=== PATIENT | female | born 1985 | race Caucasian/White ===

== ENCOUNTER 2021-01-20 05:34 | Inpatient (IN) ==
--- NOTE | 2021-01-11 13:28 | Anesthesiology Consultation ---
Date of Service January 11, 2021 Assessment & Plan (1) Encounter for pre-operative examination: Chart Review Chart Review: entry level buyer initiated Per nursing assessment 01/11/2021, patient denies any recent travel. No known Covid infection in the past 90 days. No known Covid positive contacts or Covid related symptoms. Pt is aware of need of getting preop Covid testing= will await results. History Surgery Operation Date: 01/20/21 07:30 Proposed Procedures p Section in - Abram Chiang MD Height/Weight Height: 5 ft 3 in Weight: 142.882 kg Allergies Allergy/AdvReac Type Severity Reaction Status Date / Time No Known Allergies Allergy Verified 01/11/21 12:18 Medications Home Medications Medication Instructions Recorded Confirmed Last Taken insulin glargine [Lantus Solostar 42 unit SUBCUT HS 01/11/21 01/11/21 Unknown U-100 Insulin] [id number] 1 tab PO QAM 01/11/21 01/11/21 Unknown [] Past Medical History Medical History Gestational diabetes On insulin History of depression History of pyloric stenosis as a child Past Family History Family History Other No family history of adverse response to anesthesia Past Surgical History Surgical History History of History of open reduction and internal fixation (ORIF) procedure Left arm History of repair of pyloric stenosis History of wisdom tooth extraction Social History Smoking Status: Never smoker Do You Dip or Chew Tobacco: No Hx Alcohol Use: No Hx Substance Use: No substance use type: does not use
--- NOTE | 2021-01-11 17:05 | History and Physical Report ---
This is a preoperative H and P for surgery scheduled on 01/20/2021. CHIEF COMPLAINT: 1. at term. 2. Previous section, wishes to have repeat . HISTORY OF PRESENT ILLNESS: This is a 35-year-old G3, P1, due date 01/27/2021, making her 37 weeks a nd 5 weeks today. The patient has elevated BMI and a prior section. is complicat ed by gestational diabetes on insulin. The patient is receiving 42 units every evening. She is sche duled for repeat section on 01/20/2021. course complicated by: 1. BMI of 56.3. 2. Gestational diabetes, on insulin. 3. History of previous section, wishes to have repeat . PAST MEDICAL HISTORY: 1. History of gestational diabetes in previous pregnancies. 2. History of herpes zoster. PAST SURGICAL HISTORY: 1. History of previous section in 2010. 2. Dental surgery. SOCIAL HISTORY: The patient denies tobacco, drug or alcohol use. FAMILY HISTORY: Noncontributory. PHYSICAL EXAMINATION: GENERAL: Well-developed, well-nourished white female. Morbidly obese, BMI 66.3. HEART: S1, S2 heard. Regular rhythm and rate. LUNGS: Clear to auscultation bilaterally. ABDOMEN: Nontender, nondistended. EXTREMITIES: No cyanosis, clubbing or edema. ASSESSMENT AND PLAN: 1. A 35-year-old G3, P1 at 37 weeks and 5 days today, EDC 01/27/2021. The patient is a prior C-sect ion wishes to have repeat . 2. History of gestational diabetes on insulin. 3. History of herpes with no active lesions today. Risks of surgery including infection, bleeding, and damage to adjacent organs were discussed with wendy nur. Patient will sign consent on the day of admission with the operating surgeon, Dr. Edwin stafford. Job ID: [id number]
[2021-01-20] MEDS ORDERED: LACTATED RINGER'S 1,000 ML IV SCH ×2 (05:45→09:15)
[2021-01-20] MEDS ORDERED: MoRPHine SULFATE PF 1 MG/ML 10 ML AMP/VIAL ONE (06:41)
[2021-01-20] MEDS ORDERED: fentaNYL citrate 100 MCG/2 ML VIAL ONE (06:41)
[2021-01-20] MEDS ORDERED: CITRIC ACID/SODIUM CITRATE 15 ML UDC PO ONE (07:00)
[2021-01-20 07:02] LABS: Basophils # (auto) 0.02 K/uL (0-0.2); Basophils % (auto) 0.2 %; Eosinophils # (auto) 0.14 K/uL (0-0.5); Eosinophils % (auto) 1.5 %; Hematocrit (blood only) 36.7 % (37-47); Immature Granulocytes # (auto) 0.02 K/uL (0.00-0.02); Immature Granulocytes % (auto) 0.2 %; Lymphocytes # (auto) 2.36 K/uL (1.2-3.4); Lymphocytes % (auto) 25.1 %; Mean Corpuscular Hemoglobin 29.7 pg (25-34); Mean Corpuscular Hgb Conc 32.7 g/dL (32-36); Mean Corpuscular Volume 90.8 fL (80-100); Monocytes # (auto) 0.62 K/uL (0.11-0.59); Monocytes % (auto) 6.6 %; Neutrophils # (auto) 6.26 K/uL (1.4-6.5); Neutrophils % (auto) 66.4 %; Platelet Count 222 K/uL (130-400); RDW Coefficient of Variation 14.2 % (11.5-14.5); RDW Standard Deviation 46.6 fL (36.4-46.3); Red Blood Count 4.04 M/uL (4.2-5.4); White Blood Count 9.42 K/uL (4.8-10.8)
--- NOTE | 2021-01-20 07:02 | History & Physical Bridge Note ---
Date of Service January 20, 2021 History & Physical Bridge Note I have examined the patient, reviewed the History & Physical and in the interval since the performance of the History & Physical I have noted the following changes of clinical significance: no changes noted
[2021-01-20] MEDS ORDERED: NALOXONE HCL 0.4 MG/1 ML VIAL/CARP IV PRN (08:07)
[2021-01-20] MEDS ORDERED: NALOXONE HCL 1 MG in SODIUM CHLORIDE 0.9% 1000ML 1,000 ML IV PRN (08:07)
[2021-01-20] MEDS ORDERED: diphenhydrAMINE 50 MG/ML VIAL IV PRN (08:07)
[2021-01-20] MEDS ORDERED: LACTATED RINGER'S 500 ML IV PRN (08:07)
[2021-01-20] MEDS ORDERED: ePHEDrine sulfate 50 MG/ML AMP IV PRN (08:07)
[2021-01-20] MEDS ORDERED: MoRPHine SULFATE PF 1 MG/ML 10 ML AMP/VIAL INT SPINAL ONE (08:07)
[2021-01-20] MEDS ORDERED: NALOXONE HCL 0.08 MG in SYRINGE 1.8 ML IV PRN (08:07)
[2021-01-20] MEDS ORDERED: KETOROLAC 30 MG/ML VIAL IV PRN (08:07)
[2021-01-20] MEDS ORDERED: SODIUM CHLORIDE 0.9% 1000ML 1,000 ML IV SCH (08:15)
[2021-01-20] MEDS ORDERED: NO NARCOTICS OR SEDATIVES SCH (08:15)
[2021-01-20] MEDS ORDERED: ONDANSETRON INJ 2 MG/ML 2 ML VIAL ONE (08:17)
[2021-01-20] MEDS ORDERED: OXYTOCIN 10 UNITS/ML VIAL ONE (08:17)
[2021-01-20] MEDS ORDERED: PHENYLEPHRINE 100MCG/ML 5ML SYR ONE (08:17)
[2021-01-20] MEDS ORDERED: PHENYLEPHRINE HCL 10 MG/ML VIAL ONE (08:17)
[2021-01-20] MEDS ORDERED: ePHEDrine sulfate 50 MG/ML SYR ONE (08:50)
[2021-01-20] MEDS ORDERED: ARISTA ABSORBABLE HEMOSTAT 3GM TOP ONE (08:56)
[2021-01-20] MEDS ORDERED: NYSTATIN POWDER 15GM BTL EXT SCH (09:00)
[2021-01-20] MEDS ORDERED: GELATIN SPONGE SZ 100 EXT ONE (09:01)
[2021-01-20] MEDS ORDERED: MEASLES, MUMPS & RUBELLA VIRUS VIAL SQ ONE (09:14)
[2021-01-20] MEDS ORDERED: DIPHTHERIA/TETANUS/PERTUSSIS 0.5 ML SYR/VIAL IM ONE (09:14)
[2021-01-20] MEDS ORDERED: ONDANSETRON INJ 2 MG/ML 2 ML VIAL IV PRN (09:14)
[2021-01-20] MEDS ORDERED: SENNA 8.6 MG TAB PO PRN (09:14)
[2021-01-20] MEDS ORDERED: SUPERCREAM 0.870% 15 GM JAR EXT PRN (09:14)
[2021-01-20] MEDS ORDERED: HYDROCORTISONE ACETATE 25 MG SUPP PR PRN (09:14)
[2021-01-20] MEDS ORDERED: MAGNESIUM HYDROXIDE SUSP 30 ML UDC PO PRN (09:14)
[2021-01-20] MEDS ORDERED: BENZOCAINE 20% AER SPR 82.5 GM CAN EXT PRN (09:14)
--- NOTE | 2021-01-20 09:18 | Post Operative Brief Note ---
Immediate Post Op Note v1 Date of Surgery January 20, 2021 Pre & Post Diagnosis Operation Date: 01/20/21 07:30 Pre-Op Diagnosis: Term ; hx of repeat section, desires repeat Post-Op Diagnosis: Term ; hx of repeat section, desires repeat I identified the patient and participated in the time-out.: Yes Procedure Operation Date: 01/20/21 07:30 Actual Procedures p Repeat Section in OR#3 for LFC @ 0823(Bilateral) - Abram Thompson MD Surgeon Abram Chiang MD Welder Production Line Combination Dr Beltrán Estimated Blood Loss 600 Findings Consistent with Post-Op Diagnosis Drains Toney Catheter (inserted after spinal analgesia without difficulty. Draining clear yellow urine. Urine output to be monitored by anesthesia intraoperatively) Disposition Accompanied Patient To Recovery: Yes Disposition: L&D
[2021-01-20] MEDS: MICONAZOLE NITRATE POWDER 43 GM EXT SCH ×2 (09:34→20:51)
[2021-01-20] MEDS: HYDROmorphone INJ 0.5 MG/0.5 ML SYR IV PRN ×3 (10:18→21:06)
[2021-01-20] MEDS: OXYTOCIN 20 UNITS in LACTATED RINGER'S 1,000 ML IV SCH ×2 (11:07→20:48)
--- NOTE | 2021-01-20 11:22 | Anesthesiology Progress Note ---
Date of Service January 20, 2021 Anesthesia Post Procedure Vital Signs Vital Signs: Temp Pulse Resp BP Pulse Ox 01/20/21 11:19 88 97 01/20/21 11:14 81 98 01/20/21 11:09 68 99 01/20/21 11:06 82 106/67 01/20/21 11:04 74 18 98 01/20/21 10:59 79 98 01/20/21 10:54 82 97 01/20/21 10:49 80 97 01/20/21 10:44 83 97 01/20/21 10:39 79 98 01/20/21 10:34 36.4 C L 77 16 103/58 L 97 01/20/21 10:29 77 96 01/20/21 10:24 88 16 102/56 L 97 01/20/21 10:19 71 97 01/20/21 10:14 84 16 97 01/20/21 10:13 86 101/58 L 01/20/21 10:09 82 97 01/20/21 10:04 83 14 103/61 96 01/20/21 09:59 87 97 01/20/21 09:55 83 105/63 01/20/21 09:54 88 16 97 01/20/21 09:50 93 H 117/64 01/20/21 09:49 80 100 01/20/21 09:46 79 94 01/20/21 09:44 96 H 16 100 01/20/21 09:39 88 100 01/20/21 09:34 85 18 122/69 99 01/20/21 09:29 88 100 01/20/21 09:24 36.5 C 93 H 20 126/69 01/20/21 09:23 98 H 100 01/20/21 07:06 87 100 01/20/21 07:03 85 128/75 01/20/21 07:01 81 100 01/20/21 06:56 85 100 01/20/21 06:51 87 100 01/20/21 06:46 79 100 01/20/21 06:41 80 100 01/20/21 06:36 85 100 01/20/21 06:31 84 98 01/20/21 06:26 82 99 01/20/21 06:21 82 97 01/20/21 06:16 94 H 98 01/20/21 06:11 97 H 96 01/20/21 06:06 97 H 97 01/20/21 05:44 36.9 C 18 01/20/21 05:40 36.9 C 18 Pain Intensity Lower Abdomen: Pain Intensity: 2 Transfer of Care Handoff Completed per policy Notes Mental Status: alert / awake / arousable and participated in evaluation Patient Amnestic to Procedure: No Nausea / Vomiting: adequately controlled Pain: adequately controlled Airway Patency, RR, SpO2: stable & adequate BP & HR: stable & adequate Hydration State: stable & adequate Neuraxial Anesthesia: was administered and sensory block is resolving Anesthetic Complications: no major complications apparent and Pt Satisfied with anesthetic care
--- NOTE | 2021-01-20 11:26 | Operative Report (OR) ---
DATE OF SURGERY: 01/20/2021 PREOPERATIVE DIAGNOSES: The patient is a 35-year-old 3, para 1-0-1-1, at 39 weeks of gestation, with history of prior section, who was scheduled for a repeat section, declined TOLAC/ (trial of labor after section/vaginal after section). POSTOPERATIVE DIAGNOSES: The patient is a 35-year-old 3, para 1-0-1-1, at 39 weeks of gestation, with history of prior section, who was scheduled for a repeat section, declined TOLAC/ (trial of labor after section/vaginal after section). PROCEDURE: Repeat low transverse with Pfannenstiel skin incision. SURGEON: Abram Chiang MD. RADIO INTERFERENCE SUPERVISOR: Kayta Beltrán MD. ESTIMATED BLOOD LOSS: 600 mL. ANESTHESIA: Spinal. ANESTHESIOLOGIST: Dr. Mata. DRAINS: Toney catheter drained 100 mL of clear urine. FINDINGS: Baby was a viable female delivered in cephalic presentation, occiput posterior position, at 08:23 a.m. Apgars were 8 and 9. Weight was 3401 grams. Maternal findings: Normal uterus, fallopian tubes and ovaries, morbid obesity, scarring of fascia from prior surgery. DESCRIPTION OF PROCEDURE: The patient was taken to the operating room where spinal anesthesia was given without difficulty. She was placed in dorsal supine position with a leftward tilt. She was prepared and draped in the usual sterile fashion. Pfannenstiel skin incision was made from the old incision scar, carried through to the underlying layer of fascia with the Bovie. Fascia was incised in the midline and the incision was extended laterally with the help of Haile scissors. Upper aspect of the fascial incision was then grasped with 2 Yusef clamps, elevated and the underlying rectus muscle dissected off bluntly and sharply with Haile scissors. Lower aspect of the fascial incision was grasped with 2 Yusef clamps, elevated, and the underlying rectus muscle dissected off sharply and bluntly with fingers and Haile scissors, and the rectus muscles were in the midline. Peritoneum was entered bluntly with fingers and peritoneal incision was extended superiorly and inferiorly with good visualization of the bladder. An Leonel abdominal wall retractor was placed and the vesicouterine peritoneum was grasped with pickups and entered sharply with Metzenbaum scissors. Bladder flap was created digitally and a bladder blade was inserted. There was a large tortuous vein in the lower uterine segment. We got superiorly to avoid that vein and we were still in lower uterine segment. It was incised in a transverse fashion. The incision was extended laterally with the help of fingers and bandage scissors. Membranes were ruptured. Clear fluid was obtained and then cord prolapsed upon entry into the uterine cavity. The head was in occiput posterior position, baby was facing up. Head was brought to the incision and delivered without difficulty. Shoulders were delivered with minimal traction. Baby's mouth and nose were suctioned. Cord was clamped x2 and cut, and the baby was handed off to the waiting protective signal superintendent. The placenta was delivered manually as intact and complete. I was unable to exteriorize the uterus due to the scarred fascia and tight abdominal wall. Uterus was retained in the pelvis. It was cleared of all clots and debris, and the incision was repaired with 0 Vicryl in a running locked fashion and a second imbricating layer was placed with another 0 Vicryl in a running locked fashion. There was some oozing around the tortuous vein. Those were controlled with [id number] stitches x3 and excellent hemostasis was achieved. Ovaries and fallopian tubes were visualized to be normal and the pelvis was irrigated with warm normal saline and suctioned. The uterine incision was checked to be hemostatic again. Parietal peritoneum was attached to the rectus muscle. They were repaired together with 3-0 Vicryl in a running fashion and there was some oozing on the rectus muscle. Those were repaired with 2-0 Vicryl with zjpwxz-fu-pwhom stitches and then Yunier powder was placed over those minimal oozing parts and then hemostatic Gelfoam sponges were placed over the rectus muscle between the fascia, and the fascia was reapproximated with #1 Vicryl in a running fashion starting from both corners and meeting in the midline. Subcuticular fat tissue was brought together with 2-0 Vicryl in a running fashion. The skin was closed with 4-0 Monocryl in a subcuticular fashion. The patient tolerated the procedure well. Sponge, lap, needle count was correct x3. She was given 3 grams of cefazolin before surgery. She was applied with miconazole powder around the groin and under the skin fold area due to tinea cruris. She was taken to recovery room in stable condition. No complications happened. I was and Dr. Beltrán was present during the whole procedure. Job ID: [id number] [facility]
[2021-01-20] MEDS: MoRPHine SULFATE 2 MG/ML CARP IV PRN ×2 (11:54→19:13)
[2021-01-20] MEDS ORDERED: ceFAZolin 2000MG 2,000 MG/15 ML SYR IV SCH (14:15)
[2021-01-20] MEDS: SIMETHICONE 80 MG CHEW PO SCH ×2 (16:03→20:49)
[2021-01-20] MEDS: ceFAZolin 3,000 MG in DEXTROSE 5% 50 ML IV SCH ×2 (16:03→23:54)
[2021-01-20] MEDS: DOCUSATE SODIUM 100 MG CAP PO SCH (20:49)
[2021-01-20] MEDS: FLUCONAZOLE 100 MG TAB PO SCH (20:50)
[2021-01-20 22:33] LABS: Basophils # (auto) 0.02 K/uL (0-0.2); Basophils % (auto) 0.2 %; Eosinophils # (auto) 0.13 K/uL (0-0.5); Eosinophils % (auto) 1.2 %; Hematocrit (blood only) 34.8 % (37-47); Hemoglobin 11.4 g/dL (12.0-16.0); Immature Granulocytes # (auto) 0.01 K/uL (0.00-0.02); Immature Granulocytes % (auto) 0.1 %; Lymphocytes % (auto) 19.7 %; Mean Corpuscular Hemoglobin 30.2 pg (25-34); Mean Corpuscular Volume 92.1 fL (80-100); Mean Platelet Volume 10.5 fL (7.4-10.4); Monocytes # (auto) 0.64 K/uL (0.11-0.59); Monocytes % (auto) 5.7 %; Neutrophils # (auto) 8.19 K/uL (1.4-6.5); Neutrophils % (auto) 73.1 %; Platelet Count 168 K/uL (130-400); RDW Coefficient of Variation 14.6 % (11.5-14.5); Red Blood Count 3.78 M/uL (4.2-5.4); White Blood Count 11.19 K/uL (4.8-10.8)
[2021-01-20 22:35] LABS: Mean Corpuscular Hgb Conc 32.8 g/dL (32-36)
[2021-01-20] MEDS ORDERED: ACETAMINOPHEN 1,000 MG/100 ML VIAL IV PRN (22:47)
[2021-01-20] MEDS ORDERED: KETOROLAC TROMETHAMINE 15 MG/ML VIAL IV PRN (22:49)
[2021-01-20 22:50] LABS: Albumin Level 2.1 gm/dl (3.4-5.0); BUN Creatinine Ratio 10.3 (10-20); Calcium 8.1 mg/dl (8.5-10.1); Creatinine Clr Calc Pharmacy 182.5 ml/min; Est GFR (African American) 137.1 ml/min; Est GFR (Non-African American) 118.3 ml/min; Potassium 4.2 mmol/L (3.5-5.1)
[2021-01-20 22:53] LABS: Albumin Globulin Ratio 0.6 (0.9-2); Bilirubin,Total 0.8 mg/dl (0.2-1); Globulin 3.5 gm/dl (2.5-4.0); Total Protein 5.6 gm/dl (6.4-8.2)
--- NOTE | 2021-01-20 22:53 | Obstetrical Progress Note ---
Date of Service January 20, 2021 Assessment & Plan Admission and Anticipated Discharge Date Admission Date: January 20, 2021 Subjective I was called that her pulse has been on low 100's Normal BP's and UOP She states she doea not have enough pain control Has been on IV Pain meds General: Alert oritentedx3, NAD, smiling CVS S1S2 RRR Lungs CTAB o2 SAT 100% Abd: soft, Appropriately tedner, ND, Dressinf dry, fundu firm, below U Lchia minimal Ext NT, no edema, SCD's on Vital Signs Temp Pulse Pulse Resp BP BP Pulse Ox 01/20/21 22:00 18 100 01/20/21 21:00 18 97 01/20/21 20:00 16 97 01/20/21 19:10 37.1 C 102 H 18 104/71 96 01/20/21 19:00 18 96 01/20/21 18:00 16 97 01/20/21 17:00 18 99 01/20/21 16:00 16 98 01/20/21 15:25 36.8 C 91 H 18 114/79 99 01/20/21 15:00 97 H 18 L 01/20/21 14:30 20 98 01/20/21 13:30 20 99 01/20/21 12:49 85 100 01/20/21 12:44 79 99 01/20/21 12:39 86 99 01/20/21 12:34 79 99 01/20/21 12:29 81 98 01/20/21 12:24 87 99 01/20/21 12:19 80 98 01/20/21 12:14 87 98 01/20/21 12:09 80 98 01/20/21 12:04 78 98 01/20/21 11:59 78 98 01/20/21 11:54 75 99 01/20/21 11:49 74 99 01/20/21 11:44 80 98 01/20/21 11:39 71 97 01/20/21 11:36 86 106/58 L 01/20/21 11:34 36.4 C L 81 18 97 01/20/21 11:29 81 98 01/20/21 11:24 77 98 01/20/21 11:19 88 97 01/20/21 11:14 81 98 01/20/21 11:09 68 99 01/20/21 11:06 82 106/67 01/20/21 11:04 74 18 98 01/20/21 10:59 79 98 01/20/21 10:54 82 97 Lab Results 01/20/21 01/20/21 01/20/21 Range/Units 06:20 06:20 06:47 WBC 9.42 (4.8-10.8) K/uL RBC 4.04 L (4.2-5.4) M/uL Hgb 12.0 (12.0-16.0) g/dL Hct 36.7 L (37-47) % MCV 90.8 (80-100) fL MCH 29.7 (25-34) pg MCHC 32.7 (32-36) g/dL RDW Std Deviation 46.6 H (36.4-46.3) fL RDW Coeff of Carlos 14.2 (11.5-14.5) % Plt Count 222 (130-400) K/uL MPV 11.0 H (7.4-10.4) fL Immature Gran % (Auto) 0.2 % Neut % (Auto) 66.4 % Lymph % (Auto) 25.1 % [place] % (Auto) 6.6 % Eos % (Auto) 1.5 % Baso % (Auto) 0.2 % Neut # (Auto) 6.26 (1.4-6.5) K/uL Lymph # (Auto) 2.36 (1.2-3.4) K/uL [place] # (Auto) 0.62 H (0.11-0.59) K/uL Eos # (Auto) 0.14 (0-0.5) K/uL Baso # (Auto) 0.02 (0-0.2) K/uL Immature Gran # (Auto) 0.02 (0.00-0.02) K/uL Sodium (136-145) mmol/L Potassium (3.5-5.1) mmol/L Chloride (98-107) mmol/L Carbon Dioxide (21-32) mmol/L Anion Gap (3-11) BUN (7-18) mg/dl Creatinine (0.6-1.2) mg/dl Est Cr Clr Drug Dosing ml/min Est GFR ( Amer) ml/min Est GFR (Non-Af Amer) ml/min BUN/Creatinine Ratio (10-20) Glucose (70-99) mg/dl POC Glucose 72 (70-99) mg/dl Calcium (8.5-10.1) mg/dl AST (15-37) U/L ALT (12-78) U/L Albumin (3.4-5.0) gm/dl Blood Type AB Positive Antibody Screen NEGATIVE 01/20/21 01/20/21 Range/Units 22:13 22:13 WBC 11.19 H (4.8-10.8) K/uL RBC 3.78 L (4.2-5.4) M/uL Hgb 11.4 L (12.0-16.0) g/dL Hct 34.8 L (37-47) % MCV 92.1 (80-100) fL MCH 30.2 (25-34) pg MCHC 32.8 (32-36) g/dL RDW Std Deviation 49.0 H (36.4-46.3) fL RDW Coeff of Carlos 14.6 H (11.5-14.5) % Plt Count 168 (130-400) K/uL MPV 10.5 H (7.4-10.4) fL Immature Gran % (Auto) 0.1 % Neut % (Auto) 73.1 % Lymph % (Auto) 19.7 % [place] % (Auto) 5.7 % Eos % (Auto) 1.2 % Baso % (Auto) 0.2 % Neut # (Auto) 8.19 H (1.4-6.5) K/uL Lymph # (Auto) 2.20 (1.2-3.4) K/uL [place] # (Auto) 0.64 H (0.11-0.59) K/uL Eos # (Auto) 0.13 (0-0.5) K/uL Baso # (Auto) 0.02 (0-0.2) K/uL Immature Gran # (Auto) 0.01 (0.00-0.02) K/uL Sodium 136 (136-145) mmol/L Potassium 4.2 (3.5-5.1) mmol/L Chloride 104 (98-107) mmol/L Carbon Dioxide 29 (21-32) mmol/L Anion Gap 3.0 (3-11) BUN 6 L (7-18) mg/dl Creatinine 0.61 (0.6-1.2) mg/dl Est Cr Clr Drug Dosing 182.5 ml/min Est GFR ( Amer) 137.1 ml/min Est GFR (Non-Af Amer) 118.3 ml/min BUN/Creatinine Ratio 10.3 (10-20) Glucose 116 H (70-99) mg/dl POC Glucose (70-99) mg/dl Calcium 8.1 L (8.5-10.1) mg/dl AST 18 (15-37) U/L ALT 13 (12-78) U/L Albumin 2.1 L (3.4-5.0) gm/dl Blood Type Antibody Screen ECG; sinus rhytm, 103 bpm H&H stable Plan to start IV Tylenol and Toradol for pain Continue to monitor closely Results & Data ([facility]) Vital Signs (Past 12 Hours) Vital Signs Temp Pulse Pulse Resp BP BP Pulse Ox 01/20/21 22:00 18 100 01/20/21 21:00 18 97 01/20/21 20:00 16 97 01/20/21 19:10 37.1 C 102 H 18 104/71 96 01/20/21 19:00 18 96 01/20/21 18:00 16 97 01/20/21 17:00 18 99 01/20/21 16:00 16 98 01/20/21 15:25 36.8 C 91 H 18 114/79 99 01/20/21 15:00 97 H 18 L 01/20/21 14:30 20 98 01/20/21 13:30 20 99 01/20/21 12:49 85 100 01/20/21 12:44 79 99 01/20/21 12:39 86 99 01/20/21 12:34 79 99 01/20/21 12:29 81 98 01/20/21 12:24 87 99 01/20/21 12:19 80 98 01/20/21 12:14 87 98 01/20/21 12:09 80 98 01/20/21 12:04 78 98 01/20/21 11:59 78 98 01/20/21 11:54 75 99 01/20/21 11:49 74 99 01/20/21 11:44 80 98 01/20/21 11:39 71 97 01/20/21 11:36 86 106/58 L 01/20/21 11:34 36.4 C L 81 18 97 01/20/21 11:29 81 98 01/20/21 11:24 77 98 01/20/21 11:19 88 97 01/20/21 11:14 81 98 01/20/21 11:09 68 99 01/20/21 11:06 82 106/67 01/20/21 11:04 74 18 98 01/20/21 10:59 79 98 01/20/21 10:54 82 97
[2021-01-20] MEDS: KETOROLAC 30 MG/ML VIAL IV PRN (23:52)
[2021-01-21] MEDS ORDERED: MEPERIDINE HCL 50 MG/ML CARP IV PRN (02:08)
[2021-01-21] MEDS ORDERED: diphenhydrAMINE 50 MG/ML VIAL IV PRN (02:08)
[2021-01-21] MEDS ORDERED: DC INTRASPINAL MORPHINE ONE (02:08)
[2021-01-21] MEDS ORDERED: PROMETHAZINE HCL 25 MG in SODIUM CHLORIDE 0.9% 50 ML IV PRN (02:08)
[2021-01-21] MEDS ORDERED: diphenhydrAMINE Capsule 25 MG CAP PO PRN (02:08)
[2021-01-21] MEDS: KETOROLAC 30 MG/ML VIAL IV PRN (05:03)
[2021-01-21 06:35] LABS: Basophils # (auto) 0.02 K/uL (0-0.2); Basophils % (auto) 0.2 %; Eosinophils # (auto) 0.18 K/uL (0-0.5); Eosinophils % (auto) 1.4 %; Hematocrit (blood only) 33.9 % (37-47); Hemoglobin 11.3 g/dL (12.0-16.0); Immature Granulocytes # (auto) 0.02 K/uL (0.00-0.02); Immature Granulocytes % (auto) 0.2 %; Lymphocytes # (auto) 1.54 K/uL (1.2-3.4); Lymphocytes % (auto) 12.3 %; Mean Corpuscular Hemoglobin 29.7 pg (25-34); Mean Corpuscular Hgb Conc 33.3 g/dL (32-36); Mean Platelet Volume 10.6 fL (7.4-10.4); Monocytes # (auto) 0.67 K/uL (0.11-0.59); Monocytes % (auto) 5.3 %; Neutrophils # (auto) 10.11 K/uL (1.4-6.5); Neutrophils % (auto) 80.6 %; Platelet Count 163 K/uL (130-400); RDW Coefficient of Variation 14.4 % (11.5-14.5); RDW Standard Deviation 46.8 fL (36.4-46.3); Red Blood Count 3.81 M/uL (4.2-5.4); White Blood Count 12.54 K/uL (4.8-10.8)
[2021-01-21 07:12] LABS: Creatinine Clr Calc Pharmacy 236.8 ml/min; Est GFR (African American) 149.4 ml/min; Est GFR (Non-African American) 128.9 ml/min
--- NOTE | 2021-01-21 08:09 | Anesthesiology Progress Note ---
Date of Service January 21, 2021 Anesthesia Post Procedure Vital Signs Vital Signs: Temp Pulse Pulse Resp BP BP Pulse Ox 01/21/21 07:30 36.8 C 96 H 18 95/67 L 97 01/21/21 05:44 96 H 18 97 01/21/21 03:08 36.9 C 106 H 18 96/68 L 97 01/21/21 02:15 18 96 01/21/21 01:30 20 95 01/21/21 00:30 18 96 01/20/21 23:35 36.9 C 110 H 20 101/67 96 01/20/21 22:00 18 100 01/20/21 21:00 18 97 01/20/21 20:00 16 97 01/20/21 19:10 37.1 C 102 H 18 104/71 96 01/20/21 19:00 18 96 01/20/21 18:00 16 97 01/20/21 17:00 18 99 01/20/21 16:00 16 98 01/20/21 15:25 36.8 C 91 H 18 114/79 99 01/20/21 15:00 97 H 18 L 01/20/21 14:30 20 98 01/20/21 13:30 20 99 01/20/21 12:49 85 100 01/20/21 12:44 79 99 01/20/21 12:39 86 99 01/20/21 12:34 79 99 01/20/21 12:29 81 98 01/20/21 12:24 87 99 01/20/21 12:19 80 98 01/20/21 12:14 87 98 01/20/21 12:09 80 98 01/20/21 12:04 78 98 01/20/21 11:59 78 98 01/20/21 11:54 75 99 01/20/21 11:49 74 99 01/20/21 11:44 80 98 01/20/21 11:39 71 97 01/20/21 11:36 86 106/58 L 01/20/21 11:34 36.4 C L 81 18 97 01/20/21 11:29 81 98 01/20/21 11:24 77 98 01/20/21 11:19 88 97 01/20/21 11:14 81 98 01/20/21 11:09 68 99 01/20/21 11:06 82 106/67 01/20/21 11:04 74 18 98 01/20/21 10:59 79 98 01/20/21 10:54 82 97 01/20/21 10:49 80 97 01/20/21 10:44 83 97 01/20/21 10:39 79 98 01/20/21 10:34 36.4 C L 77 16 103/58 L 97 01/20/21 10:29 77 96 01/20/21 10:24 88 16 102/56 L 97 01/20/21 10:19 71 97 01/20/21 10:14 84 16 97 01/20/21 10:13 86 101/58 L 01/20/21 10:09 82 97 01/20/21 10:04 83 14 103/61 96 01/20/21 09:59 87 97 01/20/21 09:55 83 105/63 01/20/21 09:54 88 16 97 01/20/21 09:50 93 H 117/64 01/20/21 09:49 80 100 01/20/21 09:46 79 94 01/20/21 09:44 96 H 16 100 01/20/21 09:39 88 100 01/20/21 09:34 85 18 122/69 99 01/20/21 09:29 88 100 01/20/21 09:24 36.5 C 93 H 20 126/69 01/20/21 09:23 98 H 100 Pain Intensity Lower Abdomen: Pain Intensity: 3 Transfer of Care Handoff Completed per policy Notes Mental Status: alert / awake / arousable Patient Amnestic to Procedure: Yes Nausea / Vomiting: adequately controlled Pain: adequately controlled Airway Patency, RR, SpO2: stable & adequate BP & HR: stable & adequate Hydration State: stable & adequate Neuraxial Anesthesia: was administered and sensory block resolved Anesthetic Complications: no major complications apparent and Pt Satisfied with anesthetic care
[2021-01-21] MEDS: ceFAZolin 3,000 MG in DEXTROSE 5% 50 ML IV SCH (08:17)
[2021-01-21] MEDS: MICONAZOLE NITRATE POWDER 43 GM EXT SCH (08:18)
[2021-01-21] MEDS: SIMETHICONE 80 MG CHEW PO SCH ×4 (08:18→20:14)
[2021-01-21] MEDS: PRENATAL VITAMIN 1 TAB PO SCH (08:18)
[2021-01-21] MEDS: DOCUSATE SODIUM 100 MG CAP PO SCH ×2 (08:18→20:14)
[2021-01-21] MEDS: FERROUS SULFATE 325 MG TAB PO SCH (08:18)
[2021-01-21] MEDS ORDERED: ENOXAPARIN INJ 40 MG/0.4 ML SYR SQ SCH (09:00)
--- NOTE | 2021-01-21 10:23 | Obstetrical Progress Note ---
Date of Service January 21, 2021 Subjective Ambulation: ambulating normally Voiding: no voiding problems Passing Gas:: Yes Diet Tolerance:: regular diet Lochia:: Small Feeding Type:: bottle feeding Physical Exam Constitutional WD/WN, vitals as above comfortable incision c/d/i abdomen soft and non-tender no edema neg Christa's encouraged to ambulate Results & Data ([facility]) Vital Signs (Past 12 Hours) Vital Signs Temp Pulse Resp BP Pulse Ox 01/21/21 07:30 36.8 C 96 H 18 95/67 L 97 01/21/21 05:44 96 H 18 97 01/21/21 03:08 36.9 C 106 H 18 96/68 L 97 01/21/21 02:15 18 96 01/21/21 01:30 20 95 01/21/21 00:30 18 96 01/20/21 23:35 36.9 C 110 H 20 101/67 96 Laboratory Results 01/20/21 01/20/21 01/20/21 06:20 06:20 06:47 WBC 9.42 RBC 4.04 L Hgb 12.0 Hct 36.7 L MCV 90.8 MCH 29.7 MCHC 32.7 RDW Std Deviation 46.6 H RDW Coeff of Carlos 14.2 Plt Count 222 MPV 11.0 H Immature Gran % (Auto) 0.2 Neut % (Auto) 66.4 Lymph % (Auto) 25.1 [place] % (Auto) 6.6 Eos % (Auto) 1.5 Baso % (Auto) 0.2 Neut # (Auto) 6.26 Lymph # (Auto) 2.36 [place] # (Auto) 0.62 H Eos # (Auto) 0.14 Baso # (Auto) 0.02 Immature Gran # (Auto) 0.02 Sodium Potassium Chloride Carbon Dioxide Anion Gap BUN Creatinine Est Cr Clr Drug Dosing Est GFR ( Amer) Est GFR (Non-Af Amer) BUN/Creatinine Ratio Glucose POC Glucose 72 Calcium Total Bilirubin AST ALT Alkaline Phosphatase Total Protein Albumin Globulin Albumin/Globulin Ratio Blood Type AB Positive Antibody Screen NEGATIVE 01/20/21 01/20/21 01/21/21 22:13 22:13 06:08 WBC 11.19 H 12.54 H RBC 3.78 L 3.81 L Hgb 11.4 L 11.3 L Hct 34.8 L 33.9 L MCV 92.1 89.0 MCH 30.2 29.7 MCHC 32.8 33.3 RDW Std Deviation 49.0 H 46.8 H RDW Coeff of Carlos 14.6 H 14.4 Plt Count 168 163 MPV 10.5 H 10.6 H Immature Gran % (Auto) 0.1 0.2 Neut % (Auto) 73.1 80.6 Lymph % (Auto) 19.7 12.3 [place] % (Auto) 5.7 5.3 Eos % (Auto) 1.2 1.4 Baso % (Auto) 0.2 0.2 Neut # (Auto) 8.19 H 10.11 H Lymph # (Auto) 2.20 1.54 [place] # (Auto) 0.64 H 0.67 H Eos # (Auto) 0.13 0.18 Baso # (Auto) 0.02 0.02 Immature Gran # (Auto) 0.01 0.02 Sodium 136 Potassium 4.2 Chloride 104 Carbon Dioxide 29 Anion Gap 3.0 BUN 6 L Creatinine 0.61 Est Cr Clr Drug Dosing 182.5 Est GFR ( Amer) 137.1 Est GFR (Non-Af Amer) 118.3 BUN/Creatinine Ratio 10.3 Glucose 116 H POC Glucose Calcium 8.1 L Total Bilirubin 0.8 AST 18 ALT 13 Alkaline Phosphatase 101 Total Protein 5.6 L Albumin 2.1 L Globulin 3.5 Albumin/Globulin Ratio 0.6 L Blood Type Antibody Screen 01/21/21 06:08 WBC RBC Hgb Hct MCV MCH MCHC RDW Std Deviation RDW Coeff of Carlos Plt Count MPV Immature Gran % (Auto) Neut % (Auto) Lymph % (Auto) [place] % (Auto) Eos % (Auto) Baso % (Auto) Neut # (Auto) Lymph # (Auto) [place] # (Auto) Eos # (Auto) Baso # (Auto) Immature Gran # (Auto) Sodium Potassium Chloride Carbon Dioxide Anion Gap BUN Creatinine 0.47 L Est Cr Clr Drug Dosing 236.8 Est GFR ( Amer) 149.4 Est GFR (Non-Af Amer) 128.9 BUN/Creatinine Ratio Glucose POC Glucose Calcium Total Bilirubin AST ALT Alkaline Phosphatase Total Protein Albumin Globulin Albumin/Globulin Ratio Blood Type Antibody Screen
[2021-01-21] MEDS: oxyCODONE/ACETAMINOPHEN 5mg/325mg TAB PO PRN ×3 (10:47→20:14)
[2021-01-21] MEDS: IBUPROFEN 600 MG TAB PO PRN ×3 (10:47→20:14)
--- NOTE | 2021-01-21 14:39 | Electrocardiogram Report ---
Test Reason : Blood Pressure : / mmHG Vent. Rate : 103 BPM Atrial Rate : 103 BPM P-R Int : 138 ms QRS Dur : 084 ms QT Int : 320 ms P-R-T Axes : 021 007 021 degrees QTc Int : 419 ms Sinus tachycardia Otherwise normal ECG No previous ECGs available Confirmed by Deejay Tan ([id number]) on 01/21/2021 2:39:25 PM Referred By: Abram Chiang Confirmed By:Deejay Tan
[2021-01-21] MEDS ORDERED: bisacodyL 5 MG TABEC PO SCH (20:00)
[2021-01-21] MEDS: FLUCONAZOLE 100 MG TAB PO SCH (20:14)
[2021-01-22] MEDS: oxyCODONE/ACETAMINOPHEN 5mg/325mg TAB PO PRN ×2 (00:21→08:51)
[2021-01-22] MEDS: IBUPROFEN 600 MG TAB PO PRN ×2 (00:22→08:50)
[2021-01-22 06:58] LABS: Hematocrit (blood only) 34.3 % (37-47); Hemoglobin 11.2 g/dL (12.0-16.0)
[2021-01-22 07:55] VITALS: BP 119/84; PULSE 99; TEMP 98.4; O2SAT 100
--- NOTE | 2021-01-22 08:47 | Obstetrical Progress Note ---
Date of Service January 22, 2021 Assessment & Plan Admission and Anticipated Discharge Date Admission Date: January 20, 2021 Subjective Patient is seen and examined. She feels well, no complaints. Pain is under control with oral meds. Ambulating without dizziness Voiding without difficulty Tolerating regular diet with out N&V Flatus + BM neg Bleeding is minimal No fever/ chills/ CP/ SOB/ N&V/ Leg pain Bottle feeding without problems Vital Signs Temp Pulse Resp BP BP Pulse Ox 01/22/21 07:30 36.9 C 99 H 18 119/84 100 01/21/21 23:38 36.8 C 106 H 16 108/74 98 Lab Results 01/20/21 01/20/21 01/20/21 Range/Units 06:20 06:20 06:47 WBC 9.42 (4.8-10.8) K/uL RBC 4.04 L (4.2-5.4) M/uL Hgb 12.0 (12.0-16.0) g/dL Hct 36.7 L (37-47) % MCV 90.8 (80-100) fL MCH 29.7 (25-34) pg MCHC 32.7 (32-36) g/dL RDW Std Deviation 46.6 H (36.4-46.3) fL RDW Coeff of Carlos 14.2 (11.5-14.5) % Plt Count 222 (130-400) K/uL MPV 11.0 H (7.4-10.4) fL Immature Gran % (Auto) 0.2 % Neut % (Auto) 66.4 % Lymph % (Auto) 25.1 % Mccracken % (Auto) 6.6 % Eos % (Auto) 1.5 % Baso % (Auto) 0.2 % Neut # (Auto) 6.26 (1.4-6.5) K/uL Lymph # (Auto) 2.36 (1.2-3.4) K/uL Mccracken # (Auto) 0.62 H (0.11-0.59) K/uL Eos # (Auto) 0.14 (0-0.5) K/uL Baso # (Auto) 0.02 (0-0.2) K/uL Immature Gran # (Auto) 0.02 (0.00-0.02) K/uL Sodium (136-145) mmol/L Potassium (3.5-5.1) mmol/L Chloride (98-107) mmol/L Carbon Dioxide (21-32) mmol/L Anion Gap (3-11) BUN (7-18) mg/dl Creatinine (0.6-1.2) mg/dl Est Cr Clr Drug Dosing ml/min Est GFR ( Amer) ml/min Est GFR (Non-Af Amer) ml/min BUN/Creatinine Ratio (10-20) Glucose (70-99) mg/dl POC Glucose 72 (70-99) mg/dl Calcium (8.5-10.1) mg/dl Total Bilirubin (0.2-1) mg/dl AST (15-37) U/L ALT (12-78) U/L Alkaline Phosphatase (45-117) U/L Total Protein (6.4-8.2) gm/dl Albumin (3.4-5.0) gm/dl Globulin (2.5-4.0) gm/dl Albumin/Globulin Ratio (0.9-2) Blood Type AB Positive Antibody Screen NEGATIVE 01/20/21 01/20/21 01/21/21 Range/Units 22:13 22:13 06:08 WBC 11.19 H 12.54 H (4.8-10.8) K/uL RBC 3.78 L 3.81 L (4.2-5.4) M/uL Hgb 11.4 L 11.3 L (12.0-16.0) g/dL Hct 34.8 L 33.9 L (37-47) % MCV 92.1 89.0 (80-100) fL MCH 30.2 29.7 (25-34) pg MCHC 32.8 33.3 (32-36) g/dL RDW Std Deviation 49.0 H 46.8 H (36.4-46.3) fL RDW Coeff of Carlos 14.6 H 14.4 (11.5-14.5) % Plt Count 168 163 (130-400) K/uL MPV 10.5 H 10.6 H (7.4-10.4) fL Immature Gran % (Auto) 0.1 0.2 % Neut % (Auto) 73.1 80.6 % Lymph % (Auto) 19.7 12.3 % Mccracken % (Auto) 5.7 5.3 % Eos % (Auto) 1.2 1.4 % Baso % (Auto) 0.2 0.2 % Neut # (Auto) 8.19 H 10.11 H (1.4-6.5) K/uL Lymph # (Auto) 2.20 1.54 (1.2-3.4) K/uL Mccracken # (Auto) 0.64 H 0.67 H (0.11-0.59) K/uL Eos # (Auto) 0.13 0.18 (0-0.5) K/uL Baso # (Auto) 0.02 0.02 (0-0.2) K/uL Immature Gran # (Auto) 0.01 0.02 (0.00-0.02) K/uL Sodium 136 (136-145) mmol/L Potassium 4.2 (3.5-5.1) mmol/L Chloride 104 (98-107) mmol/L Carbon Dioxide 29 (21-32) mmol/L Anion Gap 3.0 (3-11) BUN 6 L (7-18) mg/dl Creatinine 0.61 (0.6-1.2) mg/dl Est Cr Clr Drug Dosing 182.5 ml/min Est GFR ( Amer) 137.1 ml/min Est GFR (Non-Af Amer) 118.3 ml/min BUN/Creatinine Ratio 10.3 (10-20) Glucose 116 H (70-99) mg/dl POC Glucose (70-99) mg/dl Calcium 8.1 L (8.5-10.1) mg/dl Total Bilirubin 0.8 (0.2-1) mg/dl AST 18 (15-37) U/L ALT 13 (12-78) U/L Alkaline Phosphatase 101 (45-117) U/L Total Protein 5.6 L (6.4-8.2) gm/dl Albumin 2.1 L (3.4-5.0) gm/dl Globulin 3.5 (2.5-4.0) gm/dl Albumin/Globulin Ratio 0.6 L (0.9-2) Blood Type Antibody Screen 01/21/21 01/22/21 Range/Units 06:08 06:46 WBC (4.8-10.8) K/uL RBC (4.2-5.4) M/uL Hgb 11.2 L (12.0-16.0) g/dL Hct 34.3 L (37-47) % MCV (80-100) fL MCH (25-34) pg MCHC (32-36) g/dL RDW Std Deviation (36.4-46.3) fL RDW Coeff of Carlos (11.5-14.5) % Plt Count (130-400) K/uL MPV (7.4-10.4) fL Immature Gran % (Auto) % Neut % (Auto) % Lymph % (Auto) % Mccracken % (Auto) % Eos % (Auto) % Baso % (Auto) % Neut # (Auto) (1.4-6.5) K/uL Lymph # (Auto) (1.2-3.4) K/uL Mccracken # (Auto) (0.11-0.59) K/uL Eos # (Auto) (0-0.5) K/uL Baso # (Auto) (0-0.2) K/uL Immature Gran # (Auto) (0.00-0.02) K/uL Sodium (136-145) mmol/L Potassium (3.5-5.1) mmol/L Chloride (98-107) mmol/L Carbon Dioxide (21-32) mmol/L Anion Gap (3-11) BUN (7-18) mg/dl Creatinine 0.47 L (0.6-1.2) mg/dl Est Cr Clr Drug Dosing 236.8 ml/min Est GFR ( Amer) 149.4 ml/min Est GFR (Non-Af Amer) 128.9 ml/min BUN/Creatinine Ratio (10-20) Glucose (70-99) mg/dl POC Glucose (70-99) mg/dl Calcium (8.5-10.1) mg/dl Total Bilirubin (0.2-1) mg/dl AST (15-37) U/L ALT (12-78) U/L Alkaline Phosphatase (45-117) U/L Total Protein (6.4-8.2) gm/dl Albumin (3.4-5.0) gm/dl Globulin (2.5-4.0) gm/dl Albumin/Globulin Ratio (0.9-2) Blood Type Antibody Screen PE: General: Alert, orientedx3, NAD CVS: S1S2 RRR Lungs; CTAB Abd: soft, NT, ND, BS+, fundus firm, below Umbilicus Incision: Clean, dry, intact Perineum intact, Lochia rubra minimal Ext; NT, no edema AP: 35 yo s/p C Section, pod# 2 VSS Afebrile doing well Continue routine postop care Encourage ambulation, PO intake All questions were answered D/C home, f/u in office Results & Data ([facility]) Vital Signs (Past 12 Hours) Vital Signs Temp Pulse Resp BP BP Pulse Ox 01/22/21 07:30 36.9 C 99 H 18 119/84 100 01/21/21 23:38 36.8 C 106 H 16 108/74 98
[2021-01-22] MEDS: SIMETHICONE 80 MG CHEW PO SCH ×2 (08:50→12:12)
[2021-01-22] MEDS: PRENATAL VITAMIN 1 TAB PO SCH (08:50)
[2021-01-22] MEDS: DOCUSATE SODIUM 100 MG CAP PO SCH (08:50)
[2021-01-22] MEDS: MICONAZOLE NITRATE POWDER 43 GM EXT SCH (08:51)
[2021-01-22] MEDS ORDERED: bisacodyL 10 MG SUPP PR PRN (09:14)
[2021-01-22] MEDS: FERROUS SULFATE 325 MG TAB PO SCH (09:24)
--- NOTE | 2021-01-29 11:29 | Discharge Summary (DS) ---
DATE OF ADMISSION: 01/20/2021 DATE OF DISCHARGE: 01/22/2021 DETAILS OF ADMISSION: The patient is a 35-year-old G3, P1-0-1-1, at 39 weeks of gestation with a his tory of prior . She was scheduled for a repeat , declined . She was admitted on 01/20 and delivered a viable female infant with repeat . See dictated op note for detail s. Her surgery was uncomplicated. On postop period, the patient was doing well. Vital signs were s table, afebrile. Urine output was adequate and on the evening of surgery, her pulse was found to be in the low 100s. Her blood pressures were normal and urine output was normal. Her physical exam was unremarkable. Oxygen saturation was 100%. Abdomen was soft, nontender, nondistended. Dressing was dry. Fundus was firm below the umbilicus. Her extremities were nontender, without edema. She had some workup including CBC, which was normal. H and H was stable. EKG was normal sinus rhythm at 103 . She was given more IV fluids and she was observed overnight. On postoperative day #1, the patient was doing well, vital signs stable, afebrile. She ambulated, passed gas, tolerated regular diet. S he was bottle feeding. Incision was clean, dry and intact. On postop day #2, the patient was doing well, vital signs stable, afebrile. Physical exam was unremarkable. Incision was clean, dry and int act. She was passing gas, tolerating regular diet, ambulating without difficulty. Her H and H was 1 1.3/33.9. She desired discharge on postoperative day #2. Discharge instructions were given. Prescr iptions were written for pain. She is to be seen in the office in a week. Job ID: [id number]
== END 2021-01-22 12:35 | disposition home or self-care (01) | DRG 787 ==
LOC: 4S2 05:34 → EDSTATUS 07:30